=== PATIENT | male | born 1970 | race African-American/Black ===

== ENCOUNTER 2020-04-21 00:22 | Emergency (ER) | payer SELFPAY ==
[2020-04-21 00:58] LABS: #Lymphocytes 1.6 thou/uL (1.20-3.40); #Neutrophils 4.6 thou/uL (1.40-6.50); %Basophils 0.4 % (0.0-1.0); %Eosinophils 0.3 % (0.0-10.0); %Lymphocytes 22.5 % (21.0-51.0); %Monocytes 13.2 % (0.0-10.0); %Neutrophils 63.7 % (42.0-75.0); Hemoglobin 11.7 g/dL (14.0-18.0); Mean Corpuscular HGB CONC 33.8 g/dL (32.0-36.0); Mean Corpuscular Hemoglobin 31.8 pg (27.0-31.0); Mean Corpuscular Volume 94.2 fL (78.0-98.0); Mean Platelet Volume 7.3 fL (7.4-10.4); Platelet Count 282 thou/uL (130-400); RBC Distribution Width 12.7 % (11.5-14.5); Red Blood Cell (RBC) Count 3.69 mill/uL (4.70-6.10); White Blood Cell (WBC) Count 7.2 thou/uL (4.8-10.8)
[2020-04-21 01:10] LABS: Base Excess-Venous 3.1 mmol/L (-2.0 to 3.0); CO2 Tension (PvCO2) 42.9 mmHg (40.0-50.0); Calcium, Ionized 1.15 mmol/L (1.15-1.33); Chloride 99 mmol/L (98-107); Hemoglobin - Calc 12.8 g/dL (14.0-18.0); Potassium 3.3 mmol/L (3.5-5.1); Sodium 137 mmol/L (138-145); T. Carbon Dioxide 29.4 mmol/L (22.0-28.0); vO2 Saturation-calc 68.4 % (60.0-85.0)
[2020-04-21 01:14] LABS: Amphetamine Not Detected (NotDetected); Cocaine Metabolite Screen Not Detected (NotDetected); Medtox Reader # READER 4; Methadone Not Detected (NotDetected); Methamphetamine Not Detected (NotDetected); Opiate Screen Not Detected (NotDetected); Phencyclidine (PCP) Not Detected (NotDetected); THC/Cannabinoid Screen Not Detected (NotDetected); Tricyclic Screen Not Detected (NotDetected)
[2020-04-21 01:15] LABS: Barbiturates Screen Not Detected (NotDetected); Benzodiazepine Screen Detected (NotDetected); Medtox Control Line Valid? VALID (VALID); Oxycodone Screen Not Detected (NotDetected)
[2020-04-21 01:18] LABS: ALT (SGPT) 20 U/L (8-55); AST (SGOT) 23 U/L (5-34); Albumin 4.2 g/dL (3.5-5.0); Alkaline Phosphatase 54 U/L (40-110); Anion Gap 15 mmol/L (10-20); BUN (Urea Nitrogen) 9 mg/dL (8.9-20.6); Bilirubin, Total 0.4 mg/dL (0.2-1.2); Calc. Creatinine Clearance 0 mL/min (70-130); Calcium 10.6 mg/dL (7.8-10.44); Carbon Dioxide 28 mmol/L (22-29); Chloride 98 mmol/L (98-107); Globulin 3.9 g/dL (2.4-3.5); Glucose 106 mg/dL (70-105); Potassium 3.6 mmol/L (3.5-5.1); Protein, Total 8.1 g/dL (6.0-8.3); Sodium 137 mmol/L (136-145)
[2020-04-21 01:19] LABS: Acetaminophen Less than 6.0 mcg/mL (10.0-30.0); Alcohol Less than 10 mg/dL (Less than 10); Salicylate Less than 8.0 mg/dL (15.0-30.0)
[2020-04-21] MEDS ORDERED: Lorazepam 1 MG TAB ONE (07:51)
[2020-04-21 09:29] LABS: SARS-CoV-2 NAA Rapid Test Not Detected (NotDetected)
== END 2020-04-21 11:30 | disposition home or self-care (01) ==
LOC: ERS 00:22
DX: F32.9 Major depressive disorder, single episode, unspecified (principal); Z20.822 Contact with and (suspected) exposure to COVID-19; F17.210 Nicotine dependence, cigarettes, uncomplicated
CPT/HCPCS: 36415; 80053; 80306; 80307; 82330; 82803; 85025; 93005; U0002